=== PATIENT | male | born 1970 | race African-American/Black ===

== ENCOUNTER 2017-03-14 11:51 | Emergency (ER) | payer SELFPAY ==
[~2017-03-14] VITALS: Ht 180.3 cm; Wt 124.7 kg
[2017-03-14 12:10] VITALS: BP 126/87
[2017-03-14] MEDS ORDERED: IBUPROFEN 600 MG TABLET. PO ONE (12:15)
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
[2017-03-14] MEDS ORDERED: IBUP-985 PO (12:35)
[2017-03-14] MEDS ORDERED: DIAZ5TAB PO (12:35)
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
== END 2017-03-14 13:05 | disposition home or self-care (01) ==
LOC: ER 11:51
DX: M54.2 Cervicalgia (principal); R51 Headache; E11.9 Type 2 diabetes mellitus without complications; I10 Essential (primary) hypertension; Z98.890 Other specified postprocedural states
CPT/HCPCS: 72040; 99284

== ENCOUNTER 2020-11-15 18:11 | Inpatient (IN) | payer OTHER, MEDICAID ==
[~2020-11-15] VITALS: Ht 180.3 cm; Wt 140.2 kg
[~2020-11-15 18:11] MED LIST: DIAZ5TAB PO; IBUP-985 PO
[2020-11-15] MEDS ORDERED: IV NORMAL SALINE 1000ML BAG 1,000 ML IV ONE ×2 (18:30→19:30)
[2020-11-15 18:39] LABS: BASO # 0.2 x10^3/uL (0.0-0.2); BASO % 1 % (0-3); EOS % 0 % (0-3); HEMATOCRIT 46.1 % (39.0-53.0); HEMOGLOBIN 13.9 g/dL (13.0-17.5); LYMPH # 9.1 x10^3/uL (1.0-4.8); LYMPH % 40 % (24-48); MEAN CORPUSCULAR HEMOGLOBIN 30 pg (25-35); MEAN CORPUSCULAR HGB CONC 30 g/dL (31-37); MEAN CORPUSCULAR VOLUME 101 fL (79-100); MONO # 1.4 x10^3/uL (0.0-1.1); MONO % 6 % (0-9); NEUT # 11.8 x10^3/uL (1.8-7.7); NEUT % 52 % (31-73); PLATELET COUNT 128 x10^3/uL (140-400); RED BLOOD COUNT 4.59 x10^6/uL (4.30-5.70); RED CELL DISTRIBUTION WIDTH 17.5 % (11.5-14.5); WHITE BLOOD COUNT 22.6 x10^3/uL (4.0-11.0)
[2020-11-15 18:58] LABS: ALBUMIN 3.6 g/dL (3.4-5.0); CALCIUM 8.9 mg/dL (8.5-10.1); CREATININE 3.3 mg/dL (0.7-1.3); GFR 23.9; POTASSIUM 4.8 mmol/L (3.5-5.1); TOTAL BILIRUBIN 0.7 mg/dL (0.2-1.0); TOTAL PROTEIN 7.2 g/dL (6.4-8.2)
[2020-11-15 19:29] LABS: % ATYL 2 % (0-0); % BANDS 2 % (0-9); % LYMPHS 44 % (24-48); % MONOS 6 % (0-10); % SEGS 46 % (35-66); PLT ESTIMATE DECREASED (ADEQUATE)
[2020-11-15] MEDS ORDERED: ONDANSETRON PF 4 MG/2 ML VIAL. IV PRN (19:30)
[2020-11-15] MEDS ORDERED: ACETAMINOPHEN 325 MG TABLET. PO PRN ×2 (19:30→21:45)
[2020-11-15] MEDS ORDERED: INSULIN,REGULAR 100 UNIT DRIP 100 ML IV ONE (19:30)
--- NOTE | 2020-11-15 19:48 | PHYS DOC ---
Past Medical History Past Medical History: Diabetes-Type II, Other Additional Past Medical Histor: cataract bilaterally prior brain tumor Past Surgical History: Other Additional Past Surgical Histo: brain surgery for removal of tumor mass Smoking Status: Never Smoker Alcohol Use: None Drug Use: None General Adult EDM: Chief Complaint: SEIZURE HPI: HPI: Patient is a 50 year [id number] male past medical history of diabetes and previous brain tumor presents via EMS for seizure. EMS picked patient up at the [facility]. Patient was found having a seizure. Shortly after arrival to the emergency department patient had another seizure. Seizure was tonic-clonic lasting 1 to 2 minutes. Patient postictal after seizure. Patient with oral lacerations abrasion to his forehead. Patient received a total of 3 mg of Ativan. Unable to obtain any history from patient. 1930hrs--- Patient reevaluated. He is alert and oriented x4. Patient states he has a history of diabetes and a brain tumor that was removed in 2009. Patient states prior to his seizure he was in normal state of health denied any headache dizziness. Review of Systems: Review of Systems: Unable to obtain any history from patient due to medical condition. Heart Score: Risk Factors: Risk Factors: DM, Current or recent (<one month) smoker, HTN, HLP, family history of CAD, obesity. Risk Scores: Score 0 - 3: 2.5% MACE over next 6 weeks - Discharge Home Score 4 - 6: 20.3% MACE over next 6 weeks - Admit for Clinical Observation Score 7 - 10: 72.7% MACE over next 6 weeks - Early Invasive Strategies Current Medications: Current Medications Medications (Trade) Dose Ordered Sig/[facility] Start Time Stop Time Status Last Admin Dose Admin Acetaminophen (Tylenol) 650 mg PRN Q4HRS PRN 11/15/20 19:30 11/16/20 19:29 Insulin Human Regular 100 ml @ 0 mls/hr 1X ONCE 11/15/20 19:30 11/15/20 19:31 DC Lorazepam (Ativan Inj) 2 mg 1X ONCE 11/15/20 18:15 11/15/20 18:16 DC Ondansetron HCl (Zofran) 4 mg PRN Q8HRS PRN 11/15/20 19:30 11/16/20 19:29 Sodium Chloride 1,000 ml @ 1,000 mls/hr 1X ONCE 11/15/20 19:30 11/15/20 20:29 Allergies: Allergies: Allergies Coded Allergies Type Severity Reaction Last Updated Verified No Known Drug Allergies 03/14/17 No Physical Exam: PE: Constitutional: Well developed, well nourished, no acute distress, non-toxic appearance. [] HENT: Abrasion left forehead, abrasion bridge of nose Eyes: PERRLA, EOMI, conjunctiva normal, no discharge. [] Neck: Normal range of motion, no tenderness, supple, no stridor. [] Cardiovascular:Heart rate regular rhythm, no murmur [] Lungs & Thorax: Bilateral breath sounds clear to auscultation [] Abdomen: Bowel sounds normal, soft, no tenderness, no masses, no pulsatile masses. [] Back: No tenderness, no CVA tenderness. [] Extremities: No tenderness, no cyanosis, no clubbing, ROM intact, no edema. [] Neurologic: Alert and oriented X 3, normal motor function, normal sensory function, no focal deficits noted. [] Psychologic: Affect normal, judgement normal, mood normal. [] Current Patient Data: Labs: Laboratory Tests Test 11/15/20 18:05 11/15/20 18:19 White Blood Count 22.6 x10^3/uL (4.0-11.0) H Red Blood Count 4.59 x10^6/uL (4.30-5.70) Hemoglobin 13.9 g/dL (13.0-17.5) Hematocrit 46.1 % (39.0-53.0) Mean Corpuscular Volume 101 fL (79-100) H Mean Corpuscular Hemoglobin 30 pg (25-35) Mean Corpuscular Hemoglobin Concent 30 g/dL (31-37) L Red Cell Distribution Width 17.5 % (11.5-14.5) H Platelet Count 128 x10^3/uL (140-400) L Neutrophils (%) (Auto) 52 % (31-73) Lymphocytes (%) (Auto) 40 % (24-48) Monocytes (%) (Auto) 6 % (0-9) Eosinophils (%) (Auto) 0 % (0-3) Basophils (%) (Auto) 1 % (0-3) Neutrophils # (Auto) 11.8 x10^3/uL (1.8-7.7) H Lymphocytes # (Auto) 9.1 x10^3/uL (1.0-4.8) H Monocytes # (Auto) 1.4 x10^3/uL (0.0-1.1) H Eosinophils # (Auto) 0.0 x10^3/uL (0.0-0.7) Basophils # (Auto) 0.2 x10^3/uL (0.0-0.2) Segmented Neutrophils % 46 % (35-66) Band Neutrophils % 2 % (0-9) Lymphocytes % 44 % (24-48) Atypical Lymphocytes % (Manual) 2 % (0-0) H Monocytes % 6 % (0-10) Platelet Estimate Decreased (ADEQUATE) Sodium Level 138 mmol/L (136-145) Potassium Level 4.8 mmol/L (3.5-5.1) Chloride Level 102 mmol/L (98-107) Carbon Dioxide Level 7 mmol/L (21-32) *L Anion Gap 29 (6-14) H Blood Urea Nitrogen 51 mg/dL (8-26) H Creatinine 3.3 mg/dL (0.7-1.3) H Estimated GFR (Cockcroft-Gault) 23.9 BUN/Creatinine Ratio 15 (6-20) Glucose Level 583 mg/dL (70-99) *H Calcium Level 8.9 mg/dL (8.5-10.1) Total Bilirubin 0.7 mg/dL (0.2-1.0) Aspartate Amino Transferase (AST) 36 U/L (15-37) Alanine Aminotransferase (ALT) 85 U/L (16-63) H Alkaline Phosphatase 184 U/L (46-116) H Total Protein 7.2 g/dL (6.4-8.2) Albumin 3.6 g/dL (3.4-5.0) Albumin/Globulin Ratio 1.0 (1.0-1.7) Ethyl Alcohol Level < 10 mg/dL (0-10) Glucose (Fingerstick) 534 mg/dL (70-99) *H Laboratory Tests 11/15/20 18:05 Laboratory Tests 11/15/20 18:05 Vital Signs: Vital Signs Date Time Temp Pulse Resp B/P (MAP) Pulse Ox O2 Delivery O2 Flow Rate FiO2 11/15/20 19:15 97.7 112 40 129/75 (93) 94 Room Air 97.7 EKG: EKG: [] Radiology/Procedures: Radiology/Procedures: [] Impression: Findings: The brain parenchyma is normal in attenuation. No intra- or extra-axial mass or fluid collection. No acute hemorrhage. The ventricles are normal in size, shape, and morphology. The hazel-white matter junction is normal. The subarachnoid cisterns are patent. Left anterior temporal lobe encephalomalacia. The visualized paranasal sinuses are normal. The visualized portions of the orbits and globes are normal. The mastoid air cells are clear. Postsurgical changes of left frontotemporal craniotomy. Impression: 1. No acute intracranial process. 2. Left anterior temporal lobe encephalomalacia. Prior left frontotemporal craniotomy. Electronically signed by: Junior Hahn MD (11/15/2020 8:14 PM) [facility] Lungs and Pleura: Pulmonary hypoexpansion with mild elevation of the right hemidiaphragm and bibasilar subsegmental atelectasis. No definite focal airspace consolidation or pleural effusion. Questionable 8mm old granuloma versus pulmonary nodule in the peripheral right lung base. Bones and Soft Tissues: Degenerative changes of the thoracic spine. IMPRESSION: No evidence of acute cardiopulmonary abnormality. Pulmonary hypoexpansion with bibasilar subsegmental atelectasis. Small old granuloma versus pulmonary nodule in the right lung base, nonemergent outpatient CT chest could be obtained for further evaluation as indicated. Electronically signed by: Felipe Eubanks DO (11/15/2020 7:47 PM) [facility] Course & Med Decision Making: Course & Med Decision Making Pertinent Labs and Imaging studies reviewed. (See chart for details) [] Patient was evaluated for chief complaint. Patient had a seizure shortly after arrival he was treated with Ativan. Blood work drawn patient was found to have blood glucose greater than 500 and a CO2 of 7. Treatment included insulin drip and IV fluids. Patient admitted to the hospitalist for further evaluation and treatment Critical care time 25 minutes Dragon Disclaimer: Susanna Disclaimer: This electronic medical record was generated, in whole or in part, using a voice recognition dictation system. Departure Departure Impression: Primary Impression: Seizure Additional Impressions: DKA (diabetic ketoacidoses) Facial abrasion Elevated lactic acid level Disposition: ADMITTED INPT THIS HOSP Admitting Physician: FRANSISCO Condition: STABLE Referrals: PATTY MAX (PCP) SHONDA POOLE DO Nov 15, 2020 19:48
--- NOTE | 2020-11-15 19:49 | RAD ---
EXAMINATION: XR CHEST 1V CLINICAL HISTORY: DKA seizure EXAM DATE/TIME: 11/15/2020 7:37 PM COMPARISON: 01/07/2016 FINDINGS: Lines, Tubes, and Devices: None. Cardiomediastinal Silhouette: Normal heart size. Lungs and Pleura: Pulmonary hypoexpansion with mild elevation of the right hemidiaphragm and bibasila r subsegmental atelectasis. No definite focal airspace consolidation or pleural effusion. Questionabl e 8mm old granuloma versus pulmonary nodule in the peripheral right lung base. Bones and Soft Tissues: Degenerative changes of the thoracic spine. IMPRESSION: No evidence of acute cardiopulmonary abnormality. Pulmonary hypoexpansion with bibasilar subsegmental atelectasis. Small old granuloma versus pulmonary nodule in the right lung base, nonemergent outpatient CT chest c ould be obtained for further evaluation as indicated. Electronically signed by: Felipe Eubanks DO (11/15/2020 7:47 PM) [facility]
--- NOTE | 2020-11-15 20:17 | RAD ---
CT HEAD/BRAIN WO Date: 11/15/2020 7:54 PM Clinical Indication: Reason: seizure / Spl. Instructions: / History: Comparison: None. Technique: 5 mm axial tomographic images were obtained of the head without contrast. These were view ed on brain and bone windows. One or more of the following dose reduction techniques were utilized: A utomated exposure control (AEC), Adjustment of mA and/or kV according to patient size, Use of iterati ve reconstruction technique such as ASiR, CT scan done according to ALARA and image gently/image grady ly Findings: The brain parenchyma is normal in attenuation. No intra- or extra-axial mass or fluid collection. No acute hemorrhage. The ventricles are normal in size, shape, and morphology. The hazel-white matter johanna ction is normal. The subarachnoid cisterns are patent. Left anterior temporal lobe encephalomalacia. The visualized paranasal sinuses are normal. The visualized portions of the orbits and globes are no rmal. The mastoid air cells are clear. Postsurgical changes of left frontotemporal craniotomy. Impression: 1. No acute intracranial process. 2. Left anterior temporal lobe encephalomalacia. Prior left frontotemporal craniotomy. Electronically signed by: Junior Hahn MD (11/15/2020 8:14 PM) [facility]
[2020-11-15 20:38] LABS: BILIRUBIN,URINE NEGATIVE (NEG); CLARITY,URINE CLEAR; COLOR,URINE YELLOW; NITRITE,URINE NEGATIVE (NEG); PROTEIN,URINE 30 mg/dL (NEG-TRACE); UROBILINOGEN,URINE 0.2 mg/dL (0.2 mg/dL)
[2020-11-15 20:49] LABS: BACTERIA,URINE 0 /HPF (0-FEW); WBC,URINE OCC /HPF (0-4)
[2020-11-15 20:53] LABS: AMORPHOUS SEDIMENT,UR PRESENT /HPF
[2020-11-15] MEDS ORDERED: MAGNESIUM HYDROXIDE 2,400 MG/30 ML ORAL.SUSP. PO PRN (21:45)
[2020-11-15] MEDS ORDERED: CALCIUM CARBONATE 500 MG TAB.CHEW PO PRN (21:45)
[2020-11-15] MEDS ORDERED: MAG HYDROX/ALUMINUM HYD/SIMETH 30 ML ORAL.SUSP PO PRN (21:45)
[2020-11-15] MEDS ORDERED: 0.9 % SODIUM CHLORIDE 10 ML DISP.SYRIN. IV PRN (21:45)
[2020-11-15] MEDS ORDERED: BISACODYL 10 MG SUPP.RECT. PR PRN (21:45)
[2020-11-15] MEDS ORDERED: ONDANSETRON PF 4 MG/2 ML VIAL. IVP PRN (21:45)
[2020-11-15] MEDS ORDERED: ZOLPIDEM 5 MG TABLET. PO PRN (21:45)
--- NOTE | 2020-11-15 22:11 | PDOC1 ---
History and Physical Date of Admission Date of Admission DATE: 11/15/20 TIME: 21:50 Identification/Chief Complaint Chief Complaint Seizure Source Source: Chart review History of Present Illness History of Present Illness Patient 50-year-old male with past medical history of brain tumor, diabetes, who presents to the ER for evaluation after seizure-like activity. [place]. Upon arrival in the ED he had another witnessed tonic-clonic seizure, lasting roughly 1-2 minutes. Patient was of fallen, as he has abrasions noted to his face. He states he does not recall falling, and is postictal upon my evaluation. Further history is difficult to obtain at this time due to postictal state. In the ER he was noted to be in DKA, and fluid boluses and started on insulin drip. Will admit patient to ICU for further medical management. Past Medical History Past Medical History Brain tumor, DM2, cataracts Past Surgical History Past Surgical History Brain surgery Family History Family History: Family History Unknown Social History Smoke: No ALCOHOL: none Drugs: None Current Problem List Problem List Problems Medical Problems: (1) DKA (diabetic ketoacidoses) Status: Acute (2) Elevated lactic acid level Status: Acute (3) Facial abrasion Status: Acute (4) Seizure Status: Acute Current Medications Current Medications Current Medications Lorazepam (Ativan Inj) 2 mg STK-MED ONCE .ROUTE ; Start 11/15/20 at 18:14; Stop 11/15/20 at 18:14; Status DC Lorazepam (Ativan Inj) 2 mg 1X ONCE IVP ; Start 11/15/20 at 18:15; Stop 11/15/20 at 18:16; Status DC Sodium Chloride 1,000 ml @ 1,000 mls/hr 1X ONCE IV Last administered on 11/15/20at 19:22; Start 11/15/20 at 18:30; Stop 11/15/20 at 19:29; Status DC Sodium Chloride 1,000 ml @ 1,000 mls/hr 1X ONCE IV Last administered on 11/15/20at 20:17; Start 11/15/20 at 19:30; Stop 11/15/20 at 20:29; Status DC Insulin Human Regular 100 ml @ 0 mls/hr 1X ONCE IV Last administered on 11/15/20at 20:12; Start 11/15/20 at 19:30; Stop 11/15/20 at 19:31; Status DC Ondansetron HCl (Zofran) 4 mg PRN Q8HRS PRN IV NAUSEA/VOMITING; Start 11/15/20 at 19:30; Stop 11/16/20 at 19:29 Acetaminophen (Tylenol) 650 mg PRN Q4HRS PRN PO FEVER > 100.3'F; Start 11/15/20 at 19:30; Stop 11/16/20 at 19:29 Acetaminophen (Tylenol) 650 mg PRN Q6HRS PRN PO Headaches, Temp > 101.5'; Start 11/15/20 at 21:45; Status UNV Lorazepam (Ativan) 1 mg PRN Q6HRS PRN PO ANXIETY / AGITATION; Start 11/15/20 at 21:45; Status UNV Ondansetron HCl (Zofran) 4 mg PRN Q6HRS PRN IVP NAUSEA/VOMITING; Start 11/15/20 at 21:45; Status UNV Al Hydroxide/Mg Hydroxide (Mylanta Plus Xs) 30 ml PRN Q3HRS PRN PO HEARTBURN / GAS; Start 11/15/20 at 21:45; Status UNV Calcium Carbonate/ Glycine (Tums) 500 mg PRN Q3HRS PRN PO HEARTBURN / GAS; Start 11/15/20 at 21:45; Status UNV Zolpidem Tartrate (Ambien) 5 mg PRN QHS PRN PO INSOMNIA, MAY REPEAT IN 1HR; Start 11/15/20 at 21:45; Status UNV Heparin Sodium (Porcine) (Heparin Sodium) 5,000 unit Q8HRS SQ ; Start 11/15/20 at 22:00; Status UNV Sodium Chloride (Normal Saline Flush) 3 ml QSHIFT PRN IV AFTER MEDS AND BLOOD DRAWS; Start 11/15/20 at 21:45; Status UNV Magnesium Hydroxide (Milk Of Magnesia) 2,400 mg PRN Q12HR PRN PO CONSTIPATION; Start 11/15/20 at 21:45; Status UNV Bisacodyl (Dulcolax Supp) 10 mg PRN DAILY PRN TX CONSTIPATION; Start 11/15/20 at 21:45; Status UNV Active Scripts Active Ibuprofen 600 Mg Tablet 600 Mg PO TID Valium (Diazepam) 5 Mg Tablet 5 Mg PO TID Allergies Allergies: Coded Allergies: No Known Drug Allergies (Unverified , 03/14/17) ROS Review of System Patient is slightly confused by my evaluation but does report some lower back pain. Further ROS cannot be obtained due to current clinical condition. Physical Exam Physical Exam General: Alert, Cooperative, No acute distress HEENT: Abrasion left forehead and bridge of nose. PERRLA, EOMI Lungs: Clear to auscultation, Normal air movement Heart: RRR, no murmurs Cardiovascular: S1, S2 Abdomen: Normal bowel sounds, Soft, No tenderness Extremities: No clubbing, No cyanosis Skin: No rashes, No significant lesion Neuro: Normal speech, Normal tone, Sensation intact Psych/Mental Status: Confused, normal mood Vitals Vitals Vital Signs Date Time Temp Pulse Resp B/P (MAP) Pulse Ox O2 Delivery O2 Flow Rate FiO2 11/15/20 19:15 97.7 112 40 129/75 (93) 94 Room Air 97.7 Labs Labs Laboratory Tests Test 11/15/20 18:05 11/15/20 18:19 11/15/20 18:25 11/15/20 20:30 White Blood Count 22.6 x10^3/uL (4.0-11.0) Red Blood Count 4.59 x10^6/uL (4.30-5.70) Hemoglobin 13.9 g/dL (13.0-17.5) Hematocrit 46.1 % (39.0-53.0) Mean Corpuscular Volume 101 fL (79-100) Mean Corpuscular Hemoglobin 30 pg (25-35) Mean Corpuscular Hemoglobin Concent 30 g/dL (31-37) Red Cell Distribution Width 17.5 % (11.5-14.5) Platelet Count 128 x10^3/uL (140-400) Neutrophils (%) (Auto) 52 % (31-73) Lymphocytes (%) (Auto) 40 % (24-48) Monocytes (%) (Auto) 6 % (0-9) Eosinophils (%) (Auto) 0 % (0-3) Basophils (%) (Auto) 1 % (0-3) Neutrophils # (Auto) 11.8 x10^3/uL (1.8-7.7) Lymphocytes # (Auto) 9.1 x10^3/uL (1.0-4.8) Monocytes # (Auto) 1.4 x10^3/uL (0.0-1.1) Eosinophils # (Auto) 0.0 x10^3/uL (0.0-0.7) Basophils # (Auto) 0.2 x10^3/uL (0.0-0.2) Segmented Neutrophils % 46 % (35-66) Band Neutrophils % 2 % (0-9) Lymphocytes % 44 % (24-48) Atypical Lymphocytes % (Manual) 2 % (0-0) Monocytes % 6 % (0-10) Platelet Estimate Decreased (ADEQUATE) Sodium Level 138 mmol/L (136-145) Potassium Level 4.8 mmol/L (3.5-5.1) Chloride Level 102 mmol/L (98-107) Carbon Dioxide Level 7 mmol/L (21-32) Anion Gap 29 (6-14) Blood Urea Nitrogen 51 mg/dL (8-26) Creatinine 3.3 mg/dL (0.7-1.3) Estimated GFR (Cockcroft-Gault) 23.9 BUN/Creatinine Ratio 15 (6-20) Glucose Level 583 mg/dL (70-99) Calcium Level 8.9 mg/dL (8.5-10.1) Total Bilirubin 0.7 mg/dL (0.2-1.0) Aspartate Amino Transf (AST/SGOT) 36 U/L (15-37) Alanine Aminotransferase (ALT/SGPT) 85 U/L (16-63) Alkaline Phosphatase 184 U/L (46-116) Total Protein 7.2 g/dL (6.4-8.2) Albumin 3.6 g/dL (3.4-5.0) Albumin/Globulin Ratio 1.0 (1.0-1.7) Ethyl Alcohol Level < 10 mg/dL (0-10) Glucose (Fingerstick) 534 mg/dL (70-99) Lactic Acid Level 18.0 mmol/L (0.4-2.0) Urine Collection Type Unknown Urine Color Yellow Urine Clarity Clear Urine pH 6.0 (<5.0-8.0) Urine Specific [place] 1.025 (1.000-1.030) Urine Protein 30 mg/dL (NEG-TRACE) Urine Glucose (UA) >=1000 mg/dL (NEG) Urine Ketones (Stick) Negative mg/dL (NEG) Urine Blood Trace (NEG) Urine Nitrite Negative (NEG) Urine Bilirubin Negative (NEG) Urine Urobilinogen Dipstick 0.2 mg/dL (0.2 mg/dL) Urine Leukocyte Esterase Negative (NEG) Urine RBC 3-5 /HPF (0-2) Urine WBC Occ /HPF (0-4) Urine Squamous Epithelial Cells Occ /LPF Urine Amorphous Sediment Present /HPF Urine Bacteria 0 /HPF (0-FEW) Urine Mucus Slight /LPF Laboratory Tests Test 11/15/20 18:05 11/15/20 18:19 11/15/20 18:25 11/15/20 20:30 White Blood Count 22.6 x10^3/uL (4.0-11.0) Red Blood Count 4.59 x10^6/uL (4.30-5.70) Hemoglobin 13.9 g/dL (13.0-17.5) Hematocrit 46.1 % (39.0-53.0) Mean Corpuscular Volume 101 fL (79-100) Mean Corpuscular Hemoglobin 30 pg (25-35) Mean Corpuscular Hemoglobin Concent 30 g/dL (31-37) Red Cell Distribution Width 17.5 % (11.5-14.5) Platelet Count 128 x10^3/uL (140-400) Neutrophils (%) (Auto) 52 % (31-73) Lymphocytes (%) (Auto) 40 % (24-48) Monocytes (%) (Auto) 6 % (0-9) Eosinophils (%) (Auto) 0 % (0-3) Basophils (%) (Auto) 1 % (0-3) Neutrophils # (Auto) 11.8 x10^3/uL (1.8-7.7) Lymphocytes # (Auto) 9.1 x10^3/uL (1.0-4.8) Monocytes # (Auto) 1.4 x10^3/uL (0.0-1.1) Eosinophils # (Auto) 0.0 x10^3/uL (0.0-0.7) Basophils # (Auto) 0.2 x10^3/uL (0.0-0.2) Segmented Neutrophils % 46 % (35-66) Band Neutrophils % 2 % (0-9) Lymphocytes % 44 % (24-48) Atypical Lymphocytes % (Manual) 2 % (0-0) Monocytes % 6 % (0-10) Platelet Estimate Decreased (ADEQUATE) Sodium Level 138 mmol/L (136-145) Potassium Level 4.8 mmol/L (3.5-5.1) Chloride Level 102 mmol/L (98-107) Carbon Dioxide Level 7 mmol/L (21-32) Anion Gap 29 (6-14) Blood Urea Nitrogen 51 mg/dL (8-26) Creatinine 3.3 mg/dL (0.7-1.3) Estimated GFR (Cockcroft-Gault) 23.9 BUN/Creatinine Ratio 15 (6-20) Glucose Level 583 mg/dL (70-99) Calcium Level 8.9 mg/dL (8.5-10.1) Total Bilirubin 0.7 mg/dL (0.2-1.0) Aspartate Amino Transf (AST/SGOT) 36 U/L (15-37) Alanine Aminotransferase (ALT/SGPT) 85 U/L (16-63) Alkaline Phosphatase 184 U/L (46-116) Total Protein 7.2 g/dL (6.4-8.2) Albumin 3.6 g/dL (3.4-5.0) Albumin/Globulin Ratio 1.0 (1.0-1.7) Ethyl Alcohol Level < 10 mg/dL (0-10) Glucose (Fingerstick) 534 mg/dL (70-99) Lactic Acid Level 18.0 mmol/L (0.4-2.0) Urine Collection Type Unknown Urine Color Yellow Urine Clarity Clear Urine pH 6.0 (<5.0-8.0) Urine Specific [place] 1.025 (1.000-1.030) Urine Protein 30 mg/dL (NEG-TRACE) Urine Glucose (UA) >=1000 mg/dL (NEG) Urine Ketones (Stick) Negative mg/dL (NEG) Urine Blood Trace (NEG) Urine Nitrite Negative (NEG) Urine Bilirubin Negative (NEG) Urine Urobilinogen Dipstick 0.2 mg/dL (0.2 mg/dL) Urine Leukocyte Esterase Negative (NEG) Urine RBC 3-5 /HPF (0-2) Urine WBC Occ /HPF (0-4) Urine Squamous Epithelial Cells Occ /LPF Urine Amorphous Sediment Present /HPF Urine Bacteria 0 /HPF (0-FEW) Urine Mucus Slight /LPF Images Images CT HEAD/BRAIN WO Date: 11/15/2020 7:54 PM Clinical Indication: Reason: seizure / Spl. Instructions: / History: Comparison: None. Technique: 5 mm axial tomographic images were obtained of the head without contrast. These were viewed on brain and bone windows. One or more of the following dose reduction techniques were utilized: Automated exposure control (AEC), Adjustment of mA and/or kV according to patient size, Use of iterative reconstruction technique such as ASiR, CT scan done according to ALARA and image gently/image wisely Findings: The brain parenchyma is normal in attenuation. No intra- or extra-axial mass or fluid collection. No acute hemorrhage. The ventricles are normal in size, shape, and morphology. The hazel-white matter junction is normal. The subarachnoid cisterns are patent. Left anterior temporal lobe encephalomalacia. The visualized paranasal sinuses are normal. The visualized portions of the orbits and globes are normal. The mastoid air cells are clear. Postsurgical changes of left frontotemporal craniotomy. Impression: 1. No acute intracranial process. 2. Left anterior temporal lobe encephalomalacia. Prior left frontotemporal craniotomy. EXAMINATION: XR CHEST 1V CLINICAL HISTORY: DKA seizure EXAM DATE/TIME: 11/15/2020 7:37 PM COMPARISON: 01/07/2016 FINDINGS: Lines, Tubes, and Devices: None. Cardiomediastinal Silhouette: Normal heart size. Lungs and Pleura: Pulmonary hypoexpansion with mild elevation of the right hemidiaphragm and bibasilar subsegmental atelectasis. No definite focal airspace consolidation or pleural effusion. Questionable 8mm old granuloma versus pulmonary nodule in the peripheral right lung base. Bones and Soft Tissues: Degenerative changes of the thoracic spine. IMPRESSION: No evidence of acute cardiopulmonary abnormality. Pulmonary hypoexpansion with bibasilar subsegmental atelectasis. Small old granuloma versus pulmonary nodule in the right lung base, nonemergent outpatient CT chest could be obtained for further evaluation as indicated. VTE Prophylaxis Ordered VTE Prophylaxis Devices: No VTE Pharmacological Prophylaxi: Yes Assessment/Plan Assessment/Plan DKA Seizures Dehydration Vasomotor nephropathy Plan: We will admit patient to ICU on insulin drip. Patient was received 2 L normal saline in the ER. Consult placed to neurology due to history of brain tumors and recent seizure activity Seizure precautions, Ativan as needed seizure-like activity CT head on admission showed no acute intracranial process, left anterior temporal lobe encephalomalacia, rior left frontotemporal craniotomy. FEN - NPO until out of DKA, then ADA diet PPX - Heparin FULL CODE Dispo - inpatient for above Justifications for Admission Other Justification DKA, seizures RAJINDER PANDEY MD Nov 15, 2020 22:11
[2020-11-15 23:57] LABS: BASE EXCESS ABG -8 mmol/L (-3-3); FIO2 ABG 21; HCO3 ABG 17 mmol/L (21-28); PCO2 ABG 30 mmHg (35-46); PO2 ABG 57 mmHg (75-108); SAT O2 ABG 89 % (92-99)
[2020-11-16] MEDS: HEPARIN for SUB-Q USE 5,000 UNIT/ML VIAL. SQ SCH ×4 (04:16→22:47)
[2020-11-16 07:26] LABS: BASO % 1 % (0-3); EOS # 0.1 x10^3/uL (0.0-0.7); EOS % 1 % (0-3); HEMATOCRIT 37.9 % (39.0-53.0); HEMOGLOBIN 12.5 g/dL (13.0-17.5); LYMPH # 1.6 x10^3/uL (1.0-4.8); LYMPH % 19 % (24-48); MEAN CORPUSCULAR HEMOGLOBIN 30 pg (25-35); MEAN CORPUSCULAR HGB CONC 33 g/dL (31-37); MEAN CORPUSCULAR VOLUME 92 fL (79-100); MONO # 0.6 x10^3/uL (0.0-1.1); MONO % 7 % (0-9); NEUT # 6.2 x10^3/uL (1.8-7.7); NEUT % 72 % (31-73); PLATELET COUNT 53 x10^3/uL (140-400); RED CELL DISTRIBUTION WIDTH 15.7 % (11.5-14.5); WHITE BLOOD COUNT 8.6 x10^3/uL (4.0-11.0)
--- NOTE | 2020-11-16 07:42 | PDOC ---
[employer] PROGRESS NOTE Date of Service DOS: DATE: 11/16/20 TIME: 07:41 Chief Complaint Chief Complaint A/P: DKA Seizures Dehydration Vasomotor nephropathy Lactic acidosis - almost certainly seizure related H/o craniotomy Leukocytosis - resolved History of Present Illness History of Present Illness Mr Griffith is a 50 yo male with past medical history of brain tumor, diabetes, who presents to the ER for evaluation after seizure-like activity. [place]. Upon arrival in the ED he had another witnessed tonic-clonic seizure, lasting roughly 1-2 minutes. Patient was of fallen, as he has abrasions noted to his face. He states he does not recall falling, and was postictal upon initial evaluation. In the ER he was noted to be in DKA, and fluid boluses and started on insulin drip. Will admit patient to ICU for further medical management. Gap closed overnight. CR down to 2.6 WBC normalized. Lactate down to 2.5 from 18. He is feeling improved has an appetite. He does not recall any of the events of yesterday remembered waking up here at the hospital. No chest pain or shortness of breath. No further seizure activity. He is previously not been noted to have had seizures. He notes he had a left craniotomy in 2008 at [facility] has been recently told this may be larger he has yet to tell his family. Vitals/I&O Vitals/I&O: Vital Signs Date Time Temp Pulse Resp B/P (MAP) Pulse Ox O2 Delivery O2 Flow Rate FiO2 11/16/20 06:00 82 25 109/59 (76) 95 Nasal Cannula 2.0 11/15/20 19:15 97.7 97.7 I & O 11/15/20 11/15/20 11/16/20 15:00 23:00 07:00 Intake Total 2000 ml Balance 2000 ml Physical Exam General: Alert, Oriented X3, Cooperative Heart: Regular rate, Normal S1, Normal S2 Lungs: Clear Abdomen: Normal bowel sounds, Soft Extremities: No clubbing, No cyanosis Skin: No rashes, No breakdown Labs Labs: Laboratory Tests Test 11/15/20 18:05 11/15/20 18:19 11/15/20 18:25 11/15/20 20:30 White Blood Count 22.6 x10^3/uL (4.0-11.0) Red Blood Count 4.59 x10^6/uL (4.30-5.70) Hemoglobin 13.9 g/dL (13.0-17.5) Hematocrit 46.1 % (39.0-53.0) Mean Corpuscular Volume 101 fL (79-100) Mean Corpuscular Hemoglobin 30 pg (25-35) Mean Corpuscular Hemoglobin Concent 30 g/dL (31-37) Red Cell Distribution Width 17.5 % (11.5-14.5) Platelet Count 128 x10^3/uL (140-400) Neutrophils (%) (Auto) 52 % (31-73) Lymphocytes (%) (Auto) 40 % (24-48) Monocytes (%) (Auto) 6 % (0-9) Eosinophils (%) (Auto) 0 % (0-3) Basophils (%) (Auto) 1 % (0-3) Neutrophils # (Auto) 11.8 x10^3/uL (1.8-7.7) Lymphocytes # (Auto) 9.1 x10^3/uL (1.0-4.8) Monocytes # (Auto) 1.4 x10^3/uL (0.0-1.1) Eosinophils # (Auto) 0.0 x10^3/uL (0.0-0.7) Basophils # (Auto) 0.2 x10^3/uL (0.0-0.2) Segmented Neutrophils % 46 % (35-66) Band Neutrophils % 2 % (0-9) Lymphocytes % 44 % (24-48) Atypical Lymphocytes % (Manual) 2 % (0-0) Monocytes % 6 % (0-10) Platelet Estimate Decreased (ADEQUATE) Sodium Level 138 mmol/L (136-145) Potassium Level 4.8 mmol/L (3.5-5.1) Chloride Level 102 mmol/L (98-107) Carbon Dioxide Level 7 mmol/L (21-32) Anion Gap 29 (6-14) Blood Urea Nitrogen 51 mg/dL (8-26) Creatinine 3.3 mg/dL (0.7-1.3) Estimated GFR (Cockcroft-Gault) 23.9 BUN/Creatinine Ratio 15 (6-20) Glucose Level 583 mg/dL (70-99) Calcium Level 8.9 mg/dL (8.5-10.1) Total Bilirubin 0.7 mg/dL (0.2-1.0) Aspartate Amino Transf (AST/SGOT) 36 U/L (15-37) Alanine Aminotransferase (ALT/SGPT) 85 U/L (16-63) Alkaline Phosphatase 184 U/L (46-116) Total Protein 7.2 g/dL (6.4-8.2) Albumin 3.6 g/dL (3.4-5.0) Albumin/Globulin Ratio 1.0 (1.0-1.7) Ethyl Alcohol Level < 10 mg/dL (0-10) Glucose (Fingerstick) 534 mg/dL (70-99) Lactic Acid Level 18.0 mmol/L (0.4-2.0) Urine Collection Type Unknown Urine Color Yellow Urine Clarity Clear Urine pH 6.0 (<5.0-8.0) Urine Specific [place] 1.025 (1.000-1.030) Urine Protein 30 mg/dL (NEG-TRACE) Urine Glucose (UA) >=1000 mg/dL (NEG) Urine Ketones (Stick) Negative mg/dL (NEG) Urine Blood Trace (NEG) Urine Nitrite Negative (NEG) Urine Bilirubin Negative (NEG) Urine Urobilinogen Dipstick 0.2 mg/dL (0.2 mg/dL) Urine Leukocyte Esterase Negative (NEG) Urine RBC 3-5 /HPF (0-2) Urine WBC Occ /HPF (0-4) Urine Squamous Epithelial Cells Occ /LPF Urine Amorphous Sediment Present /HPF Urine Bacteria 0 /HPF (0-FEW) Urine Mucus Slight /LPF Test 11/15/20 20:43 11/15/20 21:48 11/15/20 22:57 11/15/20 23:10 Glucose (Fingerstick) 441 mg/dL (70-99) 263 mg/dL (70-99) 140 mg/dL (70-99) Lactic Acid Level 2.5 mmol/L (0.4-2.0) Test 11/15/20 23:45 11/16/20 00:01 11/16/20 00:58 O2 Saturation 89 % (92-99) Arterial Blood pH 7.36 (7.35-7.45) Arterial Blood pCO2 at Patient Temp 30 mmHg (35-46) Arterial Blood pO2 at Patient Temp 57 mmHg (75-108) Arterial Blood HCO3 17 mmol/L (21-28) Arterial Blood Base Excess -8 mmol/L (-3-3) FiO2 21 Glucose (Fingerstick) 112 mg/dL (70-99) 101 mg/dL (70-99) Assessment and Plan Assessmemt and Plan Problems Medical Problems: (1) DKA (diabetic ketoacidoses) Status: Acute (2) Elevated lactic acid level Status: Acute (3) Facial abrasion Status: Acute (4) Seizure Status: Acute Comment Review of Relevant I have reviewed the following items mona (where applicable) has been applied. Medications: Current Medications Medications (Trade) Dose Ordered Sig/Lachelle Route PRN Reason Start Time Stop Time Status Last Admin Dose Admin Lorazepam (Ativan Inj) 2 mg 1X ONCE IVP 11/15/20 18:15 11/15/20 18:16 DC 11/15/20 18:16 Sodium Chloride 1,000 ml @ 1,000 mls/hr 1X ONCE IV 11/15/20 18:30 11/15/20 19:29 DC 11/15/20 19:22 Sodium Chloride 1,000 ml @ 1,000 mls/hr 1X ONCE IV 11/15/20 19:30 11/15/20 20:29 DC 11/15/20 20:17 Insulin Human Regular 100 ml @ 0 mls/hr 1X ONCE IV 11/15/20 19:30 11/15/20 19:31 DC 11/15/20 20:12 Lorazepam (Ativan) 1 mg PRN Q6HRS PRN PO ANXIETY / AGITATION 11/15/20 21:45 11/16/20 04:22 Heparin Sodium (Porcine) (Heparin Sodium) 5,000 unit Q8HRS SQ 11/15/20 22:00 11/16/20 04:16 Lorazepam (Ativan Inj) 1 mg 1X ONCE IVP 11/16/20 07:15 11/16/20 07:16 DC 11/15/20 18:46 Justifications for Admission Other Justification DKA, seizures JJ MURRAY MD Nov 16, 2020 07:42
[2020-11-16 07:44] LABS: CALCIUM 8.1 mg/dL (8.5-10.1); CREATININE 2.6 mg/dL (0.7-1.3); GFR 31.5; POTASSIUM 4.5 mmol/L (3.5-5.1)
[2020-11-16] MEDS: levETIRAcetam 500 MG TABLET PO SCH ×2 (09:56→22:43)
[2020-11-16] MEDS ORDERED: DEXTROSE 50% 25 GM / 50ML DISP.SYRIN. IV PRN (10:00)
[2020-11-16] MEDS ORDERED: INSULIN GLARGINE SYRINGE. SQ SCH (10:00)
--- NOTE | 2020-11-16 10:15 | PDOC2 ---
NEUROLOGY CONSULT Date of Service DOS: DATE: 11/16/20 TIME: 10:08 Reason for Consult Reason for Consult: Seizures Referring Physician Referring Physician: Dr. Garcia Source Source: Chart review, Patient History of Present Illness History of Present Illness The patient is a 50-year-old right-handed male who [place], then another seizure in the emergency department. He was also found to be in diabetic ketoacidosis. No anticonvulsants were started and I was not notified of this consult, but the patient did show up on my list. 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 He had a resection about 10 years ago and was told that his recent MRI, August of last year, showed some recurrence. He has never had a seizure in the past, and denies any head injury, although there are some abrasions on his scalp from falling yesterday. He is feeling much better today. 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) Endocrine: Diabetes Past Surgical History Past Surgical History: Cataract Removal Family History Family History: Other (Negative for seizures) Social History Social History Single, on disability mainly due to his vision loss, no alcohol, tobacco, street drugs Current Medications Current Medications Current Medications Lorazepam (Ativan Inj) 2 mg STK-MED ONCE .ROUTE ; Start 11/15/20 at 18:14; Stop 11/15/20 at 18:14; Status DC Lorazepam (Ativan Inj) 2 mg 1X ONCE IVP Last administered on 11/15/20at 18:16; Start 11/15/20 at 18:15; Stop 11/15/20 at 18:16; Status DC Sodium Chloride 1,000 ml @ 1,000 mls/hr 1X ONCE IV Last administered on 11/15/20at 19:22; Start 11/15/20 at 18:30; Stop 11/15/20 at 19:29; Status DC Sodium Chloride 1,000 ml @ 1,000 mls/hr 1X ONCE IV Last administered on 11/15/20at 20:17; Start 11/15/20 at 19:30; Stop 11/15/20 at 20:29; Status DC Insulin Human Regular 100 ml @ 0 mls/hr 1X ONCE IV Last administered on 11/15/20at 20:12; Start 11/15/20 at 19:30; Stop 11/16/20 at 09:59; Status DC Ondansetron HCl (Zofran) 4 mg PRN Q8HRS PRN IV NAUSEA/VOMITING; Start 11/15/20 at 19:30; Stop 11/15/20 at 21:57; Status DC Acetaminophen (Tylenol) 650 mg PRN Q4HRS PRN PO FEVER > 100.3'F; Start 11/15/20 at 19:30; Stop 11/15/20 at 21:57; Status DC Acetaminophen (Tylenol) 650 mg PRN Q6HRS PRN PO Headaches, Temp > 101.5'; Start 11/15/20 at 21:45 Lorazepam (Ativan) 1 mg PRN Q6HRS PRN PO ANXIETY / AGITATION Last administered on 11/16/20at 04:22; Start 11/15/20 at 21:45 Ondansetron HCl (Zofran) 4 mg PRN Q6HRS PRN IVP NAUSEA/VOMITING 1ST CHOICE; Start 11/15/20 at 21:45 Al Hydroxide/Mg Hydroxide (Mylanta Plus Xs) 30 ml PRN Q3HRS PRN PO HEARTBURN / GAS; Start 11/15/20 at 21:45 Calcium Carbonate/ Glycine (Tums) 500 mg PRN Q3HRS PRN PO HEARTBURN / GAS; Start 11/15/20 at 21:45 Zolpidem Tartrate (Ambien) 5 mg PRN QHS PRN PO INSOMNIA, MAY REPEAT IN 1HR; Start 11/15/20 at 21:45 Heparin Sodium (Porcine) (Heparin Sodium) 5,000 unit Q8HRS SQ Last administered on 11/16/20at 04:16; Start 11/15/20 at 22:00 Sodium Chloride (Normal Saline Flush) 3 ml QSHIFT PRN IV AFTER MEDS AND BLOOD DRAWS; Start 11/15/20 at 21:45 Magnesium Hydroxide (Milk Of Magnesia) 2,400 mg PRN Q12HR PRN PO CONSTIPATION 1ST CHOICE; Start 11/15/20 at 21:45 Bisacodyl (Dulcolax Supp) 10 mg PRN DAILY PRN MI CONSTIPATION 2ND CHOICE; Start 11/15/20 at 21:45 Lorazepam (Ativan Inj) 2 mg PRN Q15MIN PRN IVP SEE ADMIN INSTRUCTIONS; Start 11/15/20 at 22:00 Lorazepam (Ativan Inj) 1 mg 1X ONCE IVP Last administered on 11/15/20at 18:46; Start 11/16/20 at 07:15; Stop 11/16/20 at 07:16; Status DC Levetiracetam (Keppra) 500 mg BID PO Last administered on 11/16/20at 09:56; Start 11/16/20 at 09:00 Insulin Glargine (Lantus Syringe) 8 unit 1X SQ ; Start 11/16/20 at 10:00 Insulin Human Lispro (HumaLOG) 0-9 UNITS TIDWMEALS SQ ; Start 11/16/20 at 12:00 Dextrose (Dextrose 50%-Water Syringe) 12.5 gm PRN Q15MIN PRN IV SEE COMMENTS; Start 11/16/20 at 10:00 Active Scripts Active Ibuprofen 600 Mg Tablet 600 Mg PO TID Valium (Diazepam) 5 Mg Tablet 5 Mg PO TID Allergies Allergies: Coded Allergies: No Known Drug Allergies (Unverified , 03/14/17) ROS Review of System Negative for fever, chills, weight loss, shortness of breath, chest pain, indigestion, hematochezia, melena, and dysuria. Full 14-point review of systems is negative. Physical Exam Physical Examination General: Well-developed, well-nourished black male in no acute distress HEENT: Normocephalic. Craniotomy scar, minor abrasions on scalp.Temporal arteriespulsatile and nontender. Neck: Supple without bruit, no meningismus Musculoskeletal: Stability:see neurologic. Gait exam:see neurologic. Tone:see neurologic.Strength:see neurologic. Neurological: Mental Status:intact, orientation, memory, attention span/concentration, language, fund of knowledge normal. Cranial Nerves:Pupils equal and reactive to light, extraocular movements areintact, visual napoles are full to confrontation. Facial sensation is normal. There is no facial asymmetry. Vestibulo-ocular reflex is intact. Palate elevates and tongue protrudes in midline. All other cranial related problems are negative except as mentioned before.Reflexes:2+ and symmetric with flexor plantar responses. Motor:5/5 strength with normal tone and bulk. Coordination:Finger-nose finger and qtbb-zw-lcro testing are normal. Rapid alternating movements and fine finger movements are intact. Gait:Not tested. Sensory:Stocking loss. Vitals VITALS Vital Signs Date Time Temp Pulse Resp B/P (MAP) Pulse Ox O2 Delivery O2 Flow Rate FiO2 11/16/20 06:00 82 25 109/59 (76) 95 Nasal Cannula 2.0 11/15/20 19:15 97.7 97.7 Labs Labs Laboratory Tests Test 11/15/20 18:05 11/15/20 18:19 11/15/20 18:25 11/15/20 20:30 White Blood Count 22.6 x10^3/uL (4.0-11.0) Red Blood Count 4.59 x10^6/uL (4.30-5.70) Hemoglobin 13.9 g/dL (13.0-17.5) Hematocrit 46.1 % (39.0-53.0) Mean Corpuscular Volume 101 fL (79-100) Mean Corpuscular Hemoglobin 30 pg (25-35) Mean Corpuscular Hemoglobin Concent 30 g/dL (31-37) Red Cell Distribution Width 17.5 % (11.5-14.5) Platelet Count 128 x10^3/uL (140-400) Neutrophils (%) (Auto) 52 % (31-73) Lymphocytes (%) (Auto) 40 % (24-48) Monocytes (%) (Auto) 6 % (0-9) Eosinophils (%) (Auto) 0 % (0-3) Basophils (%) (Auto) 1 % (0-3) Neutrophils # (Auto) 11.8 x10^3/uL (1.8-7.7) Lymphocytes # (Auto) 9.1 x10^3/uL (1.0-4.8) Monocytes # (Auto) 1.4 x10^3/uL (0.0-1.1) Eosinophils # (Auto) 0.0 x10^3/uL (0.0-0.7) Basophils # (Auto) 0.2 x10^3/uL (0.0-0.2) Segmented Neutrophils % 46 % (35-66) Band Neutrophils % 2 % (0-9) Lymphocytes % 44 % (24-48) Atypical Lymphocytes % (Manual) 2 % (0-0) Monocytes % 6 % (0-10) Platelet Estimate Decreased (ADEQUATE) Sodium Level 138 mmol/L (136-145) Potassium Level 4.8 mmol/L (3.5-5.1) Chloride Level 102 mmol/L (98-107) Carbon Dioxide Level 7 mmol/L (21-32) Anion Gap 29 (6-14) Blood Urea Nitrogen 51 mg/dL (8-26) Creatinine 3.3 mg/dL (0.7-1.3) Estimated GFR (Cockcroft-Gault) 23.9 BUN/Creatinine Ratio 15 (6-20) Glucose Level 583 mg/dL (70-99) Calcium Level 8.9 mg/dL (8.5-10.1) Total Bilirubin 0.7 mg/dL (0.2-1.0) Aspartate Amino Transf (AST/SGOT) 36 U/L (15-37) Alanine Aminotransferase (ALT/SGPT) 85 U/L (16-63) Alkaline Phosphatase 184 U/L (46-116) Total Protein 7.2 g/dL (6.4-8.2) Albumin 3.6 g/dL (3.4-5.0) Albumin/Globulin Ratio 1.0 (1.0-1.7) Ethyl Alcohol Level < 10 mg/dL (0-10) Glucose (Fingerstick) 534 mg/dL (70-99) Lactic Acid Level 18.0 mmol/L (0.4-2.0) Urine Collection Type Unknown Urine Color Yellow Urine Clarity Clear Urine pH 6.0 (<5.0-8.0) Urine Specific [place] 1.025 (1.000-1.030) Urine Protein 30 mg/dL (NEG-TRACE) Urine Glucose (UA) >=1000 mg/dL (NEG) Urine Ketones (Stick) Negative mg/dL (NEG) Urine Blood Trace (NEG) Urine Nitrite Negative (NEG) Urine Bilirubin Negative (NEG) Urine Urobilinogen Dipstick 0.2 mg/dL (0.2 mg/dL) Urine Leukocyte Esterase Negative (NEG) Urine RBC 3-5 /HPF (0-2) Urine WBC Occ /HPF (0-4) Urine Squamous Epithelial Cells Occ /LPF Urine Amorphous Sediment Present /HPF Urine Bacteria 0 /HPF (0-FEW) Urine Mucus Slight /LPF Test 11/15/20 20:43 11/15/20 21:48 11/15/20 22:57 11/15/20 23:10 Glucose (Fingerstick) 441 mg/dL (70-99) 263 mg/dL (70-99) 140 mg/dL (70-99) Lactic Acid Level 2.5 mmol/L (0.4-2.0) Test 11/15/20 23:45 11/16/20 00:01 11/16/20 00:58 11/16/20 07:20 O2 Saturation 89 % (92-99) Arterial Blood pH 7.36 (7.35-7.45) Arterial Blood pCO2 at Patient Temp 30 mmHg (35-46) Arterial Blood pO2 at Patient Temp 57 mmHg (75-108) Arterial Blood HCO3 17 mmol/L (21-28) Arterial Blood Base Excess -8 mmol/L (-3-3) FiO2 21 Glucose (Fingerstick) 112 mg/dL (70-99) 101 mg/dL (70-99) White Blood Count 8.6 x10^3/uL (4.0-11.0) Red Blood Count 4.10 x10^6/uL (4.30-5.70) Hemoglobin 12.5 g/dL (13.0-17.5) Hematocrit 37.9 % (39.0-53.0) Mean Corpuscular Volume 92 fL (79-100) Mean Corpuscular Hemoglobin 30 pg (25-35) Mean Corpuscular Hemoglobin Concent 33 g/dL (31-37) Red Cell Distribution Width 15.7 % (11.5-14.5) Platelet Count 53 x10^3/uL (140-400) Neutrophils (%) (Auto) 72 % (31-73) Lymphocytes (%) (Auto) 19 % (24-48) Monocytes (%) (Auto) 7 % (0-9) Eosinophils (%) (Auto) 1 % (0-3) Basophils (%) (Auto) 1 % (0-3) Neutrophils # (Auto) 6.2 x10^3/uL (1.8-7.7) Lymphocytes # (Auto) 1.6 x10^3/uL (1.0-4.8) Monocytes # (Auto) 0.6 x10^3/uL (0.0-1.1) Eosinophils # (Auto) 0.1 x10^3/uL (0.0-0.7) Basophils # (Auto) 0.0 x10^3/uL (0.0-0.2) Sodium Level 142 mmol/L (136-145) Potassium Level 4.5 mmol/L (3.5-5.1) Chloride Level 110 mmol/L (98-107) Carbon Dioxide Level 20 mmol/L (21-32) Anion Gap 12 (6-14) Blood Urea Nitrogen 45 mg/dL (8-26) Creatinine 2.6 mg/dL (0.7-1.3) Estimated GFR (Cockcroft-Gault) 31.5 Glucose Level 149 mg/dL (70-99) Calcium Level 8.1 mg/dL (8.5-10.1) Laboratory Tests Test 11/15/20 18:05 11/15/20 18:19 11/15/20 18:25 11/15/20 20:30 White Blood Count 22.6 x10^3/uL (4.0-11.0) Red Blood Count 4.59 x10^6/uL (4.30-5.70) Hemoglobin 13.9 g/dL (13.0-17.5) Hematocrit 46.1 % (39.0-53.0) Mean Corpuscular Volume 101 fL (79-100) Mean Corpuscular Hemoglobin 30 pg (25-35) Mean Corpuscular Hemoglobin Concent 30 g/dL (31-37) Red Cell Distribution Width 17.5 % (11.5-14.5) Platelet Count 128 x10^3/uL (140-400) Neutrophils (%) (Auto) 52 % (31-73) Lymphocytes (%) (Auto) 40 % (24-48) Monocytes (%) (Auto) 6 % (0-9) Eosinophils (%) (Auto) 0 % (0-3) Basophils (%) (Auto) 1 % (0-3) Neutrophils # (Auto) 11.8 x10^3/uL (1.8-7.7) Lymphocytes # (Auto) 9.1 x10^3/uL (1.0-4.8) Monocytes # (Auto) 1.4 x10^3/uL (0.0-1.1) Eosinophils # (Auto) 0.0 x10^3/uL (0.0-0.7) Basophils # (Auto) 0.2 x10^3/uL (0.0-0.2) Segmented Neutrophils % 46 % (35-66) Band Neutrophils % 2 % (0-9) Lymphocytes % 44 % (24-48) Atypical Lymphocytes % (Manual) 2 % (0-0) Monocytes % 6 % (0-10) Platelet Estimate Decreased (ADEQUATE) Sodium Level 138 mmol/L (136-145) Potassium Level 4.8 mmol/L (3.5-5.1) Chloride Level 102 mmol/L (98-107) Carbon Dioxide Level 7 mmol/L (21-32) Anion Gap 29 (6-14) Blood Urea Nitrogen 51 mg/dL (8-26) Creatinine 3.3 mg/dL (0.7-1.3) Estimated GFR (Cockcroft-Gault) 23.9 BUN/Creatinine Ratio 15 (6-20) Glucose Level 583 mg/dL (70-99) Calcium Level 8.9 mg/dL (8.5-10.1) Total Bilirubin 0.7 mg/dL (0.2-1.0) Aspartate Amino Transf (AST/SGOT) 36 U/L (15-37) Alanine Aminotransferase (ALT/SGPT) 85 U/L (16-63) Alkaline Phosphatase 184 U/L (46-116) Total Protein 7.2 g/dL (6.4-8.2) Albumin 3.6 g/dL (3.4-5.0) Albumin/Globulin Ratio 1.0 (1.0-1.7) Ethyl Alcohol Level < 10 mg/dL (0-10) Glucose (Fingerstick) 534 mg/dL (70-99) Lactic Acid Level 18.0 mmol/L (0.4-2.0) Urine Collection Type Unknown Urine Color Yellow Urine Clarity Clear Urine pH 6.0 (<5.0-8.0) Urine Specific [place] 1.025 (1.000-1.030) Urine Protein 30 mg/dL (NEG-TRACE) Urine Glucose (UA) >=1000 mg/dL (NEG) Urine Ketones (Stick) Negative mg/dL (NEG) Urine Blood Trace (NEG) Urine Nitrite Negative (NEG) Urine Bilirubin Negative (NEG) Urine Urobilinogen Dipstick 0.2 mg/dL (0.2 mg/dL) Urine Leukocyte Esterase Negative (NEG) Urine RBC 3-5 /HPF (0-2) Urine WBC Occ /HPF (0-4) Urine Squamous Epithelial Cells Occ /LPF Urine Amorphous Sediment Present /HPF Urine Bacteria 0 /HPF (0-FEW) Urine Mucus Slight /LPF Test 11/15/20 20:43 11/15/20 21:48 11/15/20 22:57 11/15/20 23:10 Glucose (Fingerstick) 441 mg/dL (70-99) 263 mg/dL (70-99) 140 mg/dL (70-99) Lactic Acid Level 2.5 mmol/L (0.4-2.0) Test 11/15/20 23:45 11/16/20 00:01 11/16/20 00:58 11/16/20 07:20 O2 Saturation 89 % (92-99) Arterial Blood pH 7.36 (7.35-7.45) Arterial Blood pCO2 at Patient Temp 30 mmHg (35-46) Arterial Blood pO2 at Patient Temp 57 mmHg (75-108) Arterial Blood HCO3 17 mmol/L (21-28) Arterial Blood Base Excess -8 mmol/L (-3-3) FiO2 21 Glucose (Fingerstick) 112 mg/dL (70-99) 101 mg/dL (70-99) White Blood Count 8.6 x10^3/uL (4.0-11.0) Red Blood Count 4.10 x10^6/uL (4.30-5.70) Hemoglobin 12.5 g/dL (13.0-17.5) Hematocrit 37.9 % (39.0-53.0) Mean Corpuscular Volume 92 fL (79-100) Mean Corpuscular Hemoglobin 30 pg (25-35) Mean Corpuscular Hemoglobin Concent 33 g/dL (31-37) Red Cell Distribution Width 15.7 % (11.5-14.5) Platelet Count 53 x10^3/uL (140-400) Neutrophils (%) (Auto) 72 % (31-73) Lymphocytes (%) (Auto) 19 % (24-48) Monocytes (%) (Auto) 7 % (0-9) Eosinophils (%) (Auto) 1 % (0-3) Basophils (%) (Auto) 1 % (0-3) Neutrophils # (Auto) 6.2 x10^3/uL (1.8-7.7) Lymphocytes # (Auto) 1.6 x10^3/uL (1.0-4.8) Monocytes # (Auto) 0.6 x10^3/uL (0.0-1.1) Eosinophils # (Auto) 0.1 x10^3/uL (0.0-0.7) Basophils # (Auto) 0.0 x10^3/uL (0.0-0.2) Sodium Level 142 mmol/L (136-145) Potassium Level 4.5 mmol/L (3.5-5.1) Chloride Level 110 mmol/L (98-107) Carbon Dioxide Level 20 mmol/L (21-32) Anion Gap 12 (6-14) Blood Urea Nitrogen 45 mg/dL (8-26) Creatinine 2.6 mg/dL (0.7-1.3) Estimated GFR (Cockcroft-Gault) 31.5 Glucose Level 149 mg/dL (70-99) Calcium Level 8.1 mg/dL (8.5-10.1) Images Images CT HEAD/BRAIN WO Date: 11/15/2020 7:54 PM Clinical Indication: Reason: seizure / Spl. Instructions: / History: Comparison: None. Technique: 5 mm axial tomographic images were obtained of the head without contrast. These were viewed on brain and bone windows. One or more of the following dose reduction techniques were utilized: Automated exposure control (AEC), Adjustment of mA and/or kV according to patient size, Use of iterative reconstruction technique such as ASiR, CT scan done according to ALARA and image gently/image wisely Findings: The brain parenchyma is normal in attenuation. No intra- or extra-axial mass or fluid collection. No acute hemorrhage. The ventricles are normal in size, shape, and morphology. The hazel-white matter junction is normal. The subarachnoid cisterns are patent. Left anterior temporal lobe encephalomalacia. The visualized paranasal sinuses are normal. The visualized portions of the orbits and globes are normal. The mastoid air cells are clear. Postsurgical changes of left frontotemporal craniotomy. Impression: 1. No acute intracranial process. 2. Left anterior temporal lobe encephalomalacia. Prior left frontotemporal craniotomy. Assessment/Plan Assessment/Plan Impression: New onset of seizure and presence of diabetic ketoacidosis, also history of brain tumor which apparently is recurrent. Diabetic ketoacidosis, dehydration, kidney injury, lactic acidosis, leukocytosis, all resolved or resolving. Recommendations: I discussed risk, benefits, alternatives, and side effects and will start the patient on levetiracetam. He just had an MRI of the brain and [facility] is following him, I see no need for a brain MRI now Likewise, an EEG will not affect management. I discussed with patient that he cannot drive until he has gone 6 months without a seizure, he does not drive anyway Thank you for letting me help with the patient's care. RAIZA AWAD MD Nov 16, 2020 10:15
--- NOTE | 2020-11-16 11:40 | EKG ---
[facility] [address] [place] [address] Test Date: 2020-11-16 Test Time: 00:26:17 Pat Name: ROBINA WHITE Department: Room: ED HOLD 3 Gender: M Analytics Analyst: : [id number] Requested By: SHONDA POOLE Order Number: [id number] Reading MD: Jama Negrete Measurements Intervals [place] Rate: 86 P: 31 NV: 146 QRS: -1 QRSD: 88 T: 10 QT: 358 QTc: 431 Interpretive Statements SINUS RHYTHM LEFTWARD AXIS Electronically Signed On 11-16-2020 15:02:03 TRANSPORTATION ENGINEER by Jama Negrete
[2020-11-16] MEDS: INSULIN LISPRO 300 UNITS/3 ML VIAL. SQ SCH ×2 (13:36→17:00)
[2020-11-16 16:18] VITALS: BP 134/83
[2020-11-16] MEDS ORDERED: OMEP20CA16 PO (16:37)
[2020-11-16 19:33] VITALS: BP 137/77
[2020-11-16 22:33] VITALS: BP 140/83
[2020-11-17 02:38] VITALS: BP 134/79
[2020-11-17] MEDS: HEPARIN for SUB-Q USE 5,000 UNIT/ML VIAL. SQ SCH (06:18)
[2020-11-17 07:00] VITALS: BP 138/80
[2020-11-17] MEDS: INSULIN LISPRO 300 UNITS/3 ML VIAL. SQ SCH ×2 (08:00→12:00)
[2020-11-17] MEDS: levETIRAcetam 500 MG TABLET PO SCH (08:13)
[2020-11-17 09:04] LABS: CALCIUM 8.1 mg/dL (8.5-10.1); CREATININE 2.4 mg/dL (0.7-1.3); GFR 34.6; POTASSIUM 4.3 mmol/L (3.5-5.1)
--- NOTE | 2020-11-17 10:23 | PDOC ---
PROGRESS NOTES Date of Service DATE: 11/17/20 TIME: 10:21 Assessment Problems Medical Problems: (1) DKA (diabetic ketoacidoses) Status: Acute (2) Elevated lactic acid level Status: Acute (3) Facial abrasion Status: Acute (4) Seizure Status: Acute New onset of seizure and presence of diabetic ketoacidosis, also history of brain tumor which apparently is recurrent. Diabetic ketoacidosis, dehydration, kidney injury, lactic acidosis, leukocytosis, all resolved or resolving. Plan Levetiracetam. Okay for discharge Follow-up with neurology/neurosurgery Follow-up with me as needed Subjective Feels well, wants to go home Objective Vital Signs Date Time Temp Pulse Resp B/P (MAP) Pulse Ox O2 Delivery O2 Flow Rate FiO2 11/17/20 07:35 Room Air 11/17/20 07:00 98.0 94 18 138/80 (99) 93 98.0 Intake and Output 11/17/20 07:00 Intake Total 1020 ml Balance 1020 ml Intake Oral 1020 ml # Voids 4 PHYSICAL EXAM Alert. Oriented to time, place and person. PERRL. EOMI. CN: no focal findings. Muscle tone: normal. Muscle strength: 5/5 DTR: 1+ Plantar reflex: Flexor Gait: Normal. Sensory exam: Stocking loss. No cerebellar signs elicited. Review of Relevant I have reviewed the following items mona (where applicable) has been applied. Labs Laboratory Tests Test 11/15/20 18:05 11/15/20 18:19 11/15/20 18:25 11/15/20 20:30 White Blood Count 22.6 x10^3/uL (4.0-11.0) Red Blood Count 4.59 x10^6/uL (4.30-5.70) Hemoglobin 13.9 g/dL (13.0-17.5) Hematocrit 46.1 % (39.0-53.0) Mean Corpuscular Volume 101 fL (79-100) Mean Corpuscular Hemoglobin 30 pg (25-35) Mean Corpuscular Hemoglobin Concent 30 g/dL (31-37) Red Cell Distribution Width 17.5 % (11.5-14.5) Platelet Count 128 x10^3/uL (140-400) Neutrophils (%) (Auto) 52 % (31-73) Lymphocytes (%) (Auto) 40 % (24-48) Monocytes (%) (Auto) 6 % (0-9) Eosinophils (%) (Auto) 0 % (0-3) Basophils (%) (Auto) 1 % (0-3) Neutrophils # (Auto) 11.8 x10^3/uL (1.8-7.7) Lymphocytes # (Auto) 9.1 x10^3/uL (1.0-4.8) Monocytes # (Auto) 1.4 x10^3/uL (0.0-1.1) Eosinophils # (Auto) 0.0 x10^3/uL (0.0-0.7) Basophils # (Auto) 0.2 x10^3/uL (0.0-0.2) Segmented Neutrophils % 46 % (35-66) Band Neutrophils % 2 % (0-9) Lymphocytes % 44 % (24-48) Atypical Lymphocytes % (Manual) 2 % (0-0) Monocytes % 6 % (0-10) Platelet Estimate Decreased (ADEQUATE) Sodium Level 138 mmol/L (136-145) Potassium Level 4.8 mmol/L (3.5-5.1) Chloride Level 102 mmol/L (98-107) Carbon Dioxide Level 7 mmol/L (21-32) Anion Gap 29 (6-14) Blood Urea Nitrogen 51 mg/dL (8-26) Creatinine 3.3 mg/dL (0.7-1.3) Estimated GFR (Cockcroft-Gault) 23.9 BUN/Creatinine Ratio 15 (6-20) Glucose Level 583 mg/dL (70-99) Calcium Level 8.9 mg/dL (8.5-10.1) Total Bilirubin 0.7 mg/dL (0.2-1.0) Aspartate Amino Transf (AST/SGOT) 36 U/L (15-37) Alanine Aminotransferase (ALT/SGPT) 85 U/L (16-63) Alkaline Phosphatase 184 U/L (46-116) Total Protein 7.2 g/dL (6.4-8.2) Albumin 3.6 g/dL (3.4-5.0) Albumin/Globulin Ratio 1.0 (1.0-1.7) Ethyl Alcohol Level < 10 mg/dL (0-10) Glucose (Fingerstick) 534 mg/dL (70-99) Lactic Acid Level 18.0 mmol/L (0.4-2.0) Urine Collection Type Unknown Urine Color Yellow Urine Clarity Clear Urine pH 6.0 (<5.0-8.0) Urine Specific [place] 1.025 (1.000-1.030) Urine Protein 30 mg/dL (NEG-TRACE) Urine Glucose (UA) >=1000 mg/dL (NEG) Urine Ketones (Stick) Negative mg/dL (NEG) Urine Blood Trace (NEG) Urine Nitrite Negative (NEG) Urine Bilirubin Negative (NEG) Urine Urobilinogen Dipstick 0.2 mg/dL (0.2 mg/dL) Urine Leukocyte Esterase Negative (NEG) Urine RBC 3-5 /HPF (0-2) Urine WBC Occ /HPF (0-4) Urine Squamous Epithelial Cells Occ /LPF Urine Amorphous Sediment Present /HPF Urine Bacteria 0 /HPF (0-FEW) Urine Mucus Slight /LPF Test 11/15/20 20:43 11/15/20 21:48 11/15/20 22:57 11/15/20 23:10 Glucose (Fingerstick) 441 mg/dL (70-99) 263 mg/dL (70-99) 140 mg/dL (70-99) Lactic Acid Level 2.5 mmol/L (0.4-2.0) Test 11/15/20 23:45 11/16/20 00:01 11/16/20 00:58 11/16/20 07:20 O2 Saturation 89 % (92-99) Arterial Blood pH 7.36 (7.35-7.45) Arterial Blood pCO2 at Patient Temp 30 mmHg (35-46) Arterial Blood pO2 at Patient Temp 57 mmHg (75-108) Arterial Blood HCO3 17 mmol/L (21-28) Arterial Blood Base Excess -8 mmol/L (-3-3) FiO2 21 Glucose (Fingerstick) 112 mg/dL (70-99) 101 mg/dL (70-99) White Blood Count 8.6 x10^3/uL (4.0-11.0) Red Blood Count 4.10 x10^6/uL (4.30-5.70) Hemoglobin 12.5 g/dL (13.0-17.5) Hematocrit 37.9 % (39.0-53.0) Mean Corpuscular Volume 92 fL (79-100) Mean Corpuscular Hemoglobin 30 pg (25-35) Mean Corpuscular Hemoglobin Concent 33 g/dL (31-37) Red Cell Distribution Width 15.7 % (11.5-14.5) Platelet Count 53 x10^3/uL (140-400) Neutrophils (%) (Auto) 72 % (31-73) Lymphocytes (%) (Auto) 19 % (24-48) Monocytes (%) (Auto) 7 % (0-9) Eosinophils (%) (Auto) 1 % (0-3) Basophils (%) (Auto) 1 % (0-3) Neutrophils # (Auto) 6.2 x10^3/uL (1.8-7.7) Lymphocytes # (Auto) 1.6 x10^3/uL (1.0-4.8) Monocytes # (Auto) 0.6 x10^3/uL (0.0-1.1) Eosinophils # (Auto) 0.1 x10^3/uL (0.0-0.7) Basophils # (Auto) 0.0 x10^3/uL (0.0-0.2) Sodium Level 142 mmol/L (136-145) Potassium Level 4.5 mmol/L (3.5-5.1) Chloride Level 110 mmol/L (98-107) Carbon Dioxide Level 20 mmol/L (21-32) Anion Gap 12 (6-14) Blood Urea Nitrogen 45 mg/dL (8-26) Creatinine 2.6 mg/dL (0.7-1.3) Estimated GFR (Cockcroft-Gault) 31.5 Glucose Level 149 mg/dL (70-99) Calcium Level 8.1 mg/dL (8.5-10.1) Test 11/16/20 13:35 11/16/20 16:05 11/16/20 21:11 11/17/20 06:20 Glucose (Fingerstick) 133 mg/dL (70-99) 114 mg/dL (70-99) 185 mg/dL (70-99) Sodium Level 141 mmol/L (136-145) Potassium Level 4.3 mmol/L (3.5-5.1) Chloride Level 111 mmol/L (98-107) Carbon Dioxide Level 19 mmol/L (21-32) Anion Gap 11 (6-14) Blood Urea Nitrogen 35 mg/dL (8-26) Creatinine 2.4 mg/dL (0.7-1.3) Estimated GFR (Cockcroft-Gault) 34.6 Glucose Level 100 mg/dL (70-99) Calcium Level 8.1 mg/dL (8.5-10.1) Test 11/17/20 07:23 Glucose (Fingerstick) 119 mg/dL (70-99) Laboratory Tests Test 11/16/20 13:35 11/16/20 16:05 11/16/20 21:11 11/17/20 06:20 Glucose (Fingerstick) 133 mg/dL (70-99) 114 mg/dL (70-99) 185 mg/dL (70-99) Sodium Level 141 mmol/L (136-145) Potassium Level 4.3 mmol/L (3.5-5.1) Chloride Level 111 mmol/L (98-107) Carbon Dioxide Level 19 mmol/L (21-32) Anion Gap 11 (6-14) Blood Urea Nitrogen 35 mg/dL (8-26) Creatinine 2.4 mg/dL (0.7-1.3) Estimated GFR (Cockcroft-Gault) 34.6 Glucose Level 100 mg/dL (70-99) Calcium Level 8.1 mg/dL (8.5-10.1) Test 11/17/20 07:23 Glucose (Fingerstick) 119 mg/dL (70-99) Medications Current Medications Lorazepam (Ativan Inj) 2 mg STK-MED ONCE .ROUTE ; Start 11/15/20 at 18:14; Stop 11/15/20 at 18:14; Status DC Lorazepam (Ativan Inj) 2 mg 1X ONCE IVP Last administered on 11/15/20at 18:16; Start 11/15/20 at 18:15; Stop 11/15/20 at 18:16; Status DC Sodium Chloride 1,000 ml @ 1,000 mls/hr 1X ONCE IV Last administered on 11/15/20at 19:22; Start 11/15/20 at 18:30; Stop 11/15/20 at 19:29; Status DC Sodium Chloride 1,000 ml @ 1,000 mls/hr 1X ONCE IV Last administered on 11/15/20at 20:17; Start 11/15/20 at 19:30; Stop 11/15/20 at 20:29; Status DC Insulin Human Regular 100 ml @ 0 mls/hr 1X ONCE IV Last administered on 11/15/20at 20:12; Start 11/15/20 at 19:30; Stop 11/16/20 at 09:59; Status DC Ondansetron HCl (Zofran) 4 mg PRN Q8HRS PRN IV NAUSEA/VOMITING; Start 11/15/20 at 19:30; Stop 11/15/20 at 21:57; Status DC Acetaminophen (Tylenol) 650 mg PRN Q4HRS PRN PO FEVER > 100.3'F; Start 11/15/20 at 19:30; Stop 11/15/20 at 21:57; Status DC Acetaminophen (Tylenol) 650 mg PRN Q6HRS PRN PO Headaches, Temp > 101.5'; Start 11/15/20 at 21:45 Lorazepam (Ativan) 1 mg PRN Q6HRS PRN PO ANXIETY / AGITATION Last administered on 11/16/20at 04:22; Start 11/15/20 at 21:45 Ondansetron HCl (Zofran) 4 mg PRN Q6HRS PRN IVP NAUSEA/VOMITING 1ST CHOICE; Start 11/15/20 at 21:45 Al Hydroxide/Mg Hydroxide (Mylanta Plus Xs) 30 ml PRN Q3HRS PRN PO HEARTBURN / GAS; Start 11/15/20 at 21:45 Calcium Carbonate/ Glycine (Tums) 500 mg PRN Q3HRS PRN PO HEARTBURN / GAS; Start 11/15/20 at 21:45 Zolpidem Tartrate (Ambien) 5 mg PRN QHS PRN PO INSOMNIA, MAY REPEAT IN 1HR; Start 11/15/20 at 21:45 Heparin Sodium (Porcine) (Heparin Sodium) 5,000 unit Q8HRS SQ Last administered on 11/17/20at 06:18; Start 11/15/20 at 22:00 Sodium Chloride (Normal Saline Flush) 3 ml QSHIFT PRN IV AFTER MEDS AND BLOOD DRAWS; Start 11/15/20 at 21:45 Magnesium Hydroxide (Milk Of Magnesia) 2,400 mg PRN Q12HR PRN PO CONSTIPATION 1ST CHOICE; Start 11/15/20 at 21:45 Bisacodyl (Dulcolax Supp) 10 mg PRN DAILY PRN [place] CONSTIPATION 2ND CHOICE; Start 11/15/20 at 21:45 Lorazepam (Ativan Inj) 2 mg PRN Q15MIN PRN IVP SEE ADMIN INSTRUCTIONS; Start 11/15/20 at 22:00 Lorazepam (Ativan Inj) 1 mg 1X ONCE IVP Last administered on 11/15/20at 18:46; Start 11/16/20 at 07:15; Stop 11/16/20 at 07:16; Status DC Levetiracetam (Keppra) 500 mg BID PO Last administered on 11/17/20at 08:13; Start 11/16/20 at 09:00 Insulin Glargine (Lantus Syringe) 8 unit 1X SQ ; Start 11/16/20 at 10:00 Insulin Human Lispro (HumaLOG) 0-9 UNITS TIDWMEALS SQ ; Start 11/16/20 at 12:00 Dextrose (Dextrose 50%-Water Syringe) 12.5 gm PRN Q15MIN PRN IV SEE COMMENTS; Start 11/16/20 at 10:00 Active Scripts Active Reported Omeprazole 20 Mg Capsule.dr Leonard Cap PO DAILY Vitals/I & O Vital Sign - Last 24 Hours 11/16/20 11/16/20 11/16/20 11/16/20 11:00 15:00 16:18 16:30 Temp 97.9 97.9 Pulse 84 88 87 Resp 16 17 18 B/P (MAP) 125/65 (85) 136/78 (97) 134/83 (100) Pulse Ox 94 98 94 O2 Delivery Room Air Room Air Room Air Room Air 11/16/20 11/16/20 11/16/20 11/17/20 19:33 20:00 22:33 02:38 Temp 98.1 98.3 99.2 98.1 98.3 99.2 Pulse 89 84 98 Resp 18 18 18 B/P (MAP) 137/77 (97) 140/83 (102) 134/79 (97) Pulse Ox 96 95 96 O2 Delivery Room Air Room Air Room Air Room Air 11/17/20 11/17/20 07:00 07:35 Temp 98.0 98.0 Pulse 94 Resp 18 B/P (MAP) 138/80 (99) Pulse Ox 93 O2 Delivery Room Air Room Air Intake and Output 11/16/20 11/16/20 11/17/20 15:00 23:00 07:00 Intake Total 240 ml 780 ml Balance 240 ml 780 ml Justicifation of Admission Dx: Justifications for Admission: Justification of Admission Dx: N/A RAIZA AWAD MD Nov 17, 2020 10:23
[2020-11-17 10:54] VITALS: BP 134/74
--- NOTE | 2020-11-17 11:37 | NUR ---
SS following for discharge planning. SS reviewed pt chart and discussed with pt RN. Pt is from home and is currently on room air. Neurology following. Probable discharge to home today. SS will continue to follow for discharge planning.
--- NOTE | 2020-11-17 12:39 | PDOC ---
[employer] PROGRESS NOTE Date of Service DOS: DATE: 11/17/20 TIME: 12:38 Chief Complaint Chief Complaint A/P: DKA Seizures Dehydration Vasomotor nephropathy Lactic acidosis - almost certainly seizure related H/o craniotomy Leukocytosis - resolved History of Present Illness History of Present Illness Mr Griffith is a 50 yo male with past medical history of brain tumor, diabetes, who presents to the ER for evaluation after seizure-like activity. [place]2020 per EMS. Upon arrival in the ED he had another witnessed tonic-clonic seizure, lasting roughly 1-2 minutes. Patient was of fallen, as he has abrasions noted to his face. He states he does not recall falling, and was postictal upon initial evaluation. In the ER he was noted to be in DKA, and fluid boluses and started on insulin drip. Will admit patient to ICU for further medical management. 11/16: Gap closed overnight. CR down to 2.6 WBC normalized. Lactate down to 2.5 from 18. He is feeling improved has an appetite. He does not recall any of the events of yesterday remembered waking up here at the hospital. No chest pain or shortness of breath. No further seizure activity. He is previously not been noted to have had seizures. He notes he had a left craniotomy in 2008 at [facility] has been recently told this may be larger he has yet to tell his family. 11/17: Patient has no complaints today. Blood sugar well controlled, CBGs in 100s. Will discharge patient home on Keppra. Discussed close PCP follow-up. Greater than 30 minutes was spent managing discharge this patient Vitals/I&O Vitals/I&O: Vital Signs Date Time Temp Pulse Resp B/P (MAP) Pulse Ox O2 Delivery O2 Flow Rate FiO2 11/17/20 10:54 98.0 77 20 134/74 (94) 93 Room Air 98.0 I & O 11/16/20 11/16/20 11/17/20 15:00 23:00 07:00 Intake Total 240 ml 780 ml Balance 240 ml 780 ml Physical Exam General: Alert, Oriented X3, Cooperative Heart: Regular rate, Normal S1, Normal S2 Lungs: Clear Abdomen: Normal bowel sounds, Soft Extremities: No clubbing, No cyanosis Skin: No rashes, No breakdown Labs Labs: Laboratory Tests Test 11/16/20 13:35 11/16/20 16:05 11/16/20 21:11 11/17/20 06:20 Glucose (Fingerstick) 133 mg/dL (70-99) 114 mg/dL (70-99) 185 mg/dL (70-99) Sodium Level 141 mmol/L (136-145) Potassium Level 4.3 mmol/L (3.5-5.1) Chloride Level 111 mmol/L (98-107) Carbon Dioxide Level 19 mmol/L (21-32) Anion Gap 11 (6-14) Blood Urea Nitrogen 35 mg/dL (8-26) Creatinine 2.4 mg/dL (0.7-1.3) Estimated GFR (Cockcroft-Gault) 34.6 Glucose Level 100 mg/dL (70-99) Calcium Level 8.1 mg/dL (8.5-10.1) Test 11/17/20 07:23 11/17/20 11:32 Glucose (Fingerstick) 119 mg/dL (70-99) 132 mg/dL (70-99) Assessment and Plan Assessmemt and Plan Problems Medical Problems: (1) DKA (diabetic ketoacidoses) Status: Acute (2) Elevated lactic acid level Status: Acute (3) Facial abrasion Status: Acute (4) Seizure Status: Acute Comment Review of Relevant I have reviewed the following items mona (where applicable) has been applied. Justifications for Admission Other Justification DKA, seizures RAJINDER PANDEY MD Nov 17, 2020 12:39
[2020-11-17] MEDS ORDERED: LEVE500T56 PO (12:43)
--- NOTE | 2020-11-17 12:45 | PDOC3 ---
Discharge Summary Visit Information Date of Admission: Nov 15, 2020 Date of Discharge: Nov 17, 2020 Final Diagnosis Problems Medical Problems: (1) DKA (diabetic ketoacidoses) Status: Acute (2) Elevated lactic acid level Status: Acute (3) Facial abrasion Status: Acute (4) Seizure Status: Acute Brief Hospital Course Allergies Allergies Coded Allergies Type Severity Reaction Last Updated Verified No Known Drug Allergies 03/14/17 No Vital Signs Vital Signs Date Time Temp Pulse Resp B/P (MAP) Pulse Ox O2 Delivery O2 Flow Rate FiO2 11/17/20 10:54 98.0 77 20 134/74 (94) 93 Room Air 98.0 Lab Results Laboratory Tests Test 11/15/20 18:05 11/15/20 18:19 11/15/20 18:25 11/15/20 20:30 White Blood Count 22.6 x10^3/uL (4.0-11.0) Red Blood Count 4.59 x10^6/uL (4.30-5.70) Hemoglobin 13.9 g/dL (13.0-17.5) Hematocrit 46.1 % (39.0-53.0) Mean Corpuscular Volume 101 fL (79-100) Mean Corpuscular Hemoglobin 30 pg (25-35) Mean Corpuscular Hemoglobin Concent 30 g/dL (31-37) Red Cell Distribution Width 17.5 % (11.5-14.5) Platelet Count 128 x10^3/uL (140-400) Neutrophils (%) (Auto) 52 % (31-73) Lymphocytes (%) (Auto) 40 % (24-48) Monocytes (%) (Auto) 6 % (0-9) Eosinophils (%) (Auto) 0 % (0-3) Basophils (%) (Auto) 1 % (0-3) Neutrophils # (Auto) 11.8 x10^3/uL (1.8-7.7) Lymphocytes # (Auto) 9.1 x10^3/uL (1.0-4.8) Monocytes # (Auto) 1.4 x10^3/uL (0.0-1.1) Eosinophils # (Auto) 0.0 x10^3/uL (0.0-0.7) Basophils # (Auto) 0.2 x10^3/uL (0.0-0.2) Segmented Neutrophils % 46 % (35-66) Band Neutrophils % 2 % (0-9) Lymphocytes % 44 % (24-48) Atypical Lymphocytes % (Manual) 2 % (0-0) Monocytes % 6 % (0-10) Platelet Estimate Decreased (ADEQUATE) Sodium Level 138 mmol/L (136-145) Potassium Level 4.8 mmol/L (3.5-5.1) Chloride Level 102 mmol/L (98-107) Carbon Dioxide Level 7 mmol/L (21-32) Anion Gap 29 (6-14) Blood Urea Nitrogen 51 mg/dL (8-26) Creatinine 3.3 mg/dL (0.7-1.3) Estimated GFR (Cockcroft-Gault) 23.9 BUN/Creatinine Ratio 15 (6-20) Glucose Level 583 mg/dL (70-99) Calcium Level 8.9 mg/dL (8.5-10.1) Total Bilirubin 0.7 mg/dL (0.2-1.0) Aspartate Amino Transf (AST/SGOT) 36 U/L (15-37) Alanine Aminotransferase (ALT/SGPT) 85 U/L (16-63) Alkaline Phosphatase 184 U/L (46-116) Total Protein 7.2 g/dL (6.4-8.2) Albumin 3.6 g/dL (3.4-5.0) Albumin/Globulin Ratio 1.0 (1.0-1.7) Ethyl Alcohol Level < 10 mg/dL (0-10) Glucose (Fingerstick) 534 mg/dL (70-99) Lactic Acid Level 18.0 mmol/L (0.4-2.0) Urine Collection Type Unknown Urine Color Yellow Urine Clarity Clear Urine pH 6.0 (<5.0-8.0) Urine Specific [place] 1.025 (1.000-1.030) Urine Protein 30 mg/dL (NEG-TRACE) Urine Glucose (UA) >=1000 mg/dL (NEG) Urine Ketones (Stick) Negative mg/dL (NEG) Urine Blood Trace (NEG) Urine Nitrite Negative (NEG) Urine Bilirubin Negative (NEG) Urine Urobilinogen Dipstick 0.2 mg/dL (0.2 mg/dL) Urine Leukocyte Esterase Negative (NEG) Urine RBC 3-5 /HPF (0-2) Urine WBC Occ /HPF (0-4) Urine Squamous Epithelial Cells Occ /LPF Urine Amorphous Sediment Present /HPF Urine Bacteria 0 /HPF (0-FEW) Urine Mucus Slight /LPF Test 11/15/20 20:43 11/15/20 21:48 11/15/20 22:57 11/15/20 23:10 Glucose (Fingerstick) 441 mg/dL (70-99) 263 mg/dL (70-99) 140 mg/dL (70-99) Lactic Acid Level 2.5 mmol/L (0.4-2.0) Test 11/15/20 23:45 11/16/20 00:01 11/16/20 00:58 11/16/20 07:20 O2 Saturation 89 % (92-99) Arterial Blood pH 7.36 (7.35-7.45) Arterial Blood pCO2 at Patient Temp 30 mmHg (35-46) Arterial Blood pO2 at Patient Temp 57 mmHg (75-108) Arterial Blood HCO3 17 mmol/L (21-28) Arterial Blood Base Excess -8 mmol/L (-3-3) FiO2 21 Glucose (Fingerstick) 112 mg/dL (70-99) 101 mg/dL (70-99) White Blood Count 8.6 x10^3/uL (4.0-11.0) Red Blood Count 4.10 x10^6/uL (4.30-5.70) Hemoglobin 12.5 g/dL (13.0-17.5) Hematocrit 37.9 % (39.0-53.0) Mean Corpuscular Volume 92 fL (79-100) Mean Corpuscular Hemoglobin 30 pg (25-35) Mean Corpuscular Hemoglobin Concent 33 g/dL (31-37) Red Cell Distribution Width 15.7 % (11.5-14.5) Platelet Count 53 x10^3/uL (140-400) Neutrophils (%) (Auto) 72 % (31-73) Lymphocytes (%) (Auto) 19 % (24-48) Monocytes (%) (Auto) 7 % (0-9) Eosinophils (%) (Auto) 1 % (0-3) Basophils (%) (Auto) 1 % (0-3) Neutrophils # (Auto) 6.2 x10^3/uL (1.8-7.7) Lymphocytes # (Auto) 1.6 x10^3/uL (1.0-4.8) Monocytes # (Auto) 0.6 x10^3/uL (0.0-1.1) Eosinophils # (Auto) 0.1 x10^3/uL (0.0-0.7) Basophils # (Auto) 0.0 x10^3/uL (0.0-0.2) Sodium Level 142 mmol/L (136-145) Potassium Level 4.5 mmol/L (3.5-5.1) Chloride Level 110 mmol/L (98-107) Carbon Dioxide Level 20 mmol/L (21-32) Anion Gap 12 (6-14) Blood Urea Nitrogen 45 mg/dL (8-26) Creatinine 2.6 mg/dL (0.7-1.3) Estimated GFR (Cockcroft-Gault) 31.5 Glucose Level 149 mg/dL (70-99) Calcium Level 8.1 mg/dL (8.5-10.1) Test 11/16/20 13:35 11/16/20 16:05 11/16/20 21:11 11/17/20 06:20 Glucose (Fingerstick) 133 mg/dL (70-99) 114 mg/dL (70-99) 185 mg/dL (70-99) Sodium Level 141 mmol/L (136-145) Potassium Level 4.3 mmol/L (3.5-5.1) Chloride Level 111 mmol/L (98-107) Carbon Dioxide Level 19 mmol/L (21-32) Anion Gap 11 (6-14) Blood Urea Nitrogen 35 mg/dL (8-26) Creatinine 2.4 mg/dL (0.7-1.3) Estimated GFR (Cockcroft-Gault) 34.6 Glucose Level 100 mg/dL (70-99) Calcium Level 8.1 mg/dL (8.5-10.1) Test 11/17/20 07:23 11/17/20 11:32 Glucose (Fingerstick) 119 mg/dL (70-99) 132 mg/dL (70-99) Laboratory Tests Test 11/16/20 13:35 11/16/20 16:05 11/16/20 21:11 11/17/20 06:20 Glucose (Fingerstick) 133 mg/dL (70-99) 114 mg/dL (70-99) 185 mg/dL (70-99) Sodium Level 141 mmol/L (136-145) Potassium Level 4.3 mmol/L (3.5-5.1) Chloride Level 111 mmol/L (98-107) Carbon Dioxide Level 19 mmol/L (21-32) Anion Gap 11 (6-14) Blood Urea Nitrogen 35 mg/dL (8-26) Creatinine 2.4 mg/dL (0.7-1.3) Estimated GFR (Cockcroft-Gault) 34.6 Glucose Level 100 mg/dL (70-99) Calcium Level 8.1 mg/dL (8.5-10.1) Test 11/17/20 07:23 11/17/20 11:32 Glucose (Fingerstick) 119 mg/dL (70-99) 132 mg/dL (70-99) Brief Hospital Course Mr. Griffith is a 50 old male who presented with DKA and seizures. He was placed on insulin infusion, with resolution of DKA. Consultation was placed to neurology. Patient was initiated on Keppra 500 mg twice daily. He was stable for discharge with PCP and neurology follow-up. Discharge Information Condition at Discharge: Improved Follow Up: Weeks Disposition/Orders: D/C to Home Scheduled Omeprazole (Omeprazole) 20 Mg Capsule., 1 CAP PO DAILY for gerd, #30 Ref 5 (Reported) Entered as Reported by: CLEMENTE ALCAZAR RN on 11/16/201636 Last Taken: Unknown Dose on 11/16/20 Last Action: New Order on 11/16/201636 by CLEMENTE ALCAZAR RN Justicifation of Admission Dx: Justifications for Admission: Justification of Admission Dx: N/A RAJINDER PANDEY MD Nov 17, 2020 12:45
[2020-11-17] MEDS ORDERED: METF-658 PO (12:48)
--- NOTE | 2020-11-17 14:14 | NUR ---
Discharge Note: [facility] [place] Discharge instructions and discharge home medications reviewed with Patient and a copy given. All questions have been answered and understanding verbalized. The following instructions and handouts were given: new medications, follow up, and discharge instructions. Discontinued lines and drains: peripheral IV's discontinued. Patient discharged to home via wheelchair accompanied by family.
== END 2020-11-17 14:02 | disposition home or self-care (01) | DRG 637 ==
LOC: ER 18:11 → ED HOLD 19:46 → 2 NORTH 19:46 → UNDOADMIN 19:46 → ER 21:55 → 2 NORTH 11-16 16:47 → ED HOLD 11-16 16:47 → UNDODISIN 11-17 14:02
PROVIDERS: ADMIT Family Medicine; ATTEND Family Medicine
DX: E11.10 Type 2 diabetes mellitus with ketoacidosis without coma (principal); N17.0 Acute kidney failure with tubular necrosis; J98.11 Atelectasis; R56.9 Unspecified convulsions; D72.829 Elevated white blood cell count, unspecified; E86.0 Dehydration; I10 Essential (primary) hypertension; Z79.899 Other long term (current) drug therapy; S00.81XA Abrasion of other part of head, initial encounter; W01.0XXA Fall on same level from slipping, tripping and stumbling without subsequent striking against object, initial encounter; Y93.89 Activity, other specified; Y92.89 Other specified places as the place of occurrence of the external cause; Y99.8 Other external cause status
CPT/HCPCS: 36415; 36600; 70450; 71045; 80048; 80053; 81001; 82805; 82962; 83605; 85007; 85025; 93005; 96361; 96365; 96366; 96375; 96376; 99285; G0480; J1644; J1815; J2060; J7030; G0378